=== PATIENT | female | born 1950 | race Caucasian/White ===

== ENCOUNTER 2016-06-14 10:56 | Inpatient (IN) | payer BC ==
[2016-06-14 11:14] LABS: Glucose,Whole Blood 94 mg/dL (75-99)
[2016-06-14] MEDS ORDERED: SODIUM CHLORIDE 0.9% 500 ML IV STA (11:19)
--- NOTE | 2016-06-14 11:22 | ED ---
General Adult HPI - General Chief complaint: Neuro Symptoms/Deficit Stated complaint: POSS CVA Time Seen by Provider: 06/14/16 11:00 Source: patient, RN notes reviewed Mode of arrival: wheelchair Limitations: no limitations - History of Present Illness Initial comments: This is a 65-year-old female presents to the emergency department complaining of facial droop. Patient states it started about an hour and half prior to arrival. Patient states the last few days she's had a headache and figured it was just some sort of viral bug. Patient denies any fever or chills. Patient denies any visual disturbances patient's symptoms. Patient denies any numbness or weakness. Patient denies any chest pain difficulty breathing or shortness of breath. Patient states she does have a tingling sensation the right side of her tongue as well. Patient states she feels like she just went to the dentist. Patient denies any recent fever or cough. Patient denies any abdominal pain patient denies nausea vomiting diarrhea. Patient denies being lightheaded dizzy or having a near syncopal episode. Patient states she has a headache but is only mild. - Related Data Home Medications Medication Instructions Recorded Confirmed ALPRAZolam [Xanax] 0.25 mg PO DAILY PRN 06/14/16 06/14/16 Losartan Potassium 100 mg PO DAILY 06/14/16 06/14/16 amLODIPine [Norvasc] 5 mg PO DAILY 06/14/16 06/14/16 Allergies Allergy/AdvReac Type Severity Reaction Status Date / Time hydromorphone [From Dilaudid] Allergy Unknown Verified 06/14/16 11:17 tramadol AdvReac Dyspnea Verified 06/14/16 11:17 Review of Systems ROS Statement: Those systems with pertinent positive or pertinent negative responses have been documented in the HPI. ROS Other: All systems not noted in ROS Statement are negative. Past Medical History Past Medical History: Hypertension History of Any Multi-Drug Resistant Organisms: C-DIFF Past Surgical History: Joint Replacement Past Psychological History: Anxiety Smoking Status: Never smoker Past Alcohol Use History: Occasional Past Drug Use History: None Reported General Exam - General Exam Comments Initial Comments: GENERAL: Patient is well-developed and well-nourished. Patient is nontoxic and well- hydrated and is in no acute distress. ENT: Neck is soft and supple. No significant lymphadenopathy is noted. Oropharynx is clear. Moist mucous membranes. Neck has full range of motion without eliciting any pain. EYES: The sclera were anicteric and conjunctiva were pink and moist. Extraocular movements were intact and pupils were equal round and reactive to light. Eyelids were unremarkable. PULMONARY: Unlabored respirations. Good breath sounds bilaterally. No audible rales rhonchi or wheezing was noted. CARDIOVASCULAR: There is a regular rate and rhythm without any murmurs gallops or rubs. ABDOMEN: Soft and nontender with normal bowel sounds. No palpable organomegaly was noted. There is no palpable pulsatile mass. SKIN: Skin is clear with no lesions or rashes and otherwise unremarkable. NEUROLOGIC: Patient is alert and oriented x3. Patient has facial droop on the right side. Patient's forehead is intact bilaterally however when the patient closes her eyes I am able to open the right eyelid open fully without much resistance were secondary to that on the left. Motor and sensory are also intact. Normal speech, volume and content. Symmetrical smile. MUSCULOSKELETAL: Normal extremities with adequate strength and full range of motion. No lower extremity swelling or edema. No calf tenderness. LYMPHATICS: No significant lymphadenopathy is noted PSYCHIATRIC: Normal psychiatric evaluation. Normal interpersonal interactions appears functionally intact in deals appropriately with others. No signs of depression. No signs of anxiety. Limitations: no limitations Course Vital Signs 06/14/16 06/14/16 10:58 12:05 Temperature 97.8 F Pulse Rate 76 63 Respiratory 18 18 Rate Blood Pressure 194/85 166/93 O2 Sat by Pulse 99 98 Oximetry Medical Decision Making - Medical Decision Making EKG shows normal sinus rhythm at 75 bpm NE interval is 134 QRS is 90 QT interval 396 QTC is 442. Patient's EKG shows no ST segment elevation or depression or T-wave abdomen is noted. Chest x-ray shows no acute abnormality. CT of the brain shows a mallet. Dr. Drummond interviewed the patient and agreed that he thought it was bells palsy but wanted to be sure the patient was admitted arise will be ordered and the patient was given Lipitor they are. - Lab Data Result diagrams: 06/14/16 11:43 06/14/16 11:43 Lab Results 06/14/16 06/14/16 06/14/16 Range/Units 11:13 11:43 11:43 WBC 5.6 (3.8-10.6) k/uL RBC 4.66 (3.80-5.40) m/uL Hgb 13.9 (11.4-16.0) gm/dL Hct 42.4 (34.0-46.0) % MCV 91.0 (80.0-100.0) fL MCH 30.0 (25.0-35.0) pg MCHC 32.9 (31.0-37.0) g/dL RDW 13.7 (11.5-15.5) % Plt Count 271 (150-450) k/uL Neutrophils % 64 % Lymphocytes % 25 % Monocytes % 5 % Eosinophils % 4 % Basophils % 1 % Neutrophils # 3.6 (1.3-7.7) k/uL Lymphocytes # 1.4 (1.0-4.8) k/uL Monocytes # 0.3 (0-1.0) k/uL Eosinophils # 0.2 (0-0.7) k/uL Basophils # 0.1 (0-0.2) k/uL PT (9.0-12.0) sec INR (<1.1) APTT (22.0-30.0) sec Sodium (137-145) mmol/L Potassium (3.5-5.1) mmol/L Chloride (98-107) mmol/L Carbon Dioxide (22-30) mmol/L Anion Gap mmol/L BUN (7-17) mg/dL Creatinine (0.52-1.04) mg/dL Est GFR (MDRD) Af Amer (>60 ml/min/1.73 sqM) Est GFR (MDRD) Non-Af (>60 ml/min/1.73 sqM) Glucose (74-99) mg/dL POC Glucose (mg/dL) 94 (75-99) mg/dL POC Glu Tire Bagger ID Branch, Haseeb Calcium (8.4-10.2) mg/dL Total Bilirubin (0.2-1.3) mg/dL AST (14-36) U/L ALT (9-52) U/L Alkaline Phosphatase (38-126) U/L Total Creatine Kinase 68 (30-135) U/L CK-MB (CK-2) 0.8 (0.0-2.4) ng/mL CK-MB (CK-2) Rel Index 1.2 Troponin I <0.012 (0.000-0.034) ng/mL Total Protein (6.3-8.2) g/dL Albumin (3.5-5.0) g/dL 06/14/16 06/14/16 Range/Units 11:43 11:43 WBC (3.8-10.6) k/uL RBC (3.80-5.40) m/uL Hgb (11.4-16.0) gm/dL Hct (34.0-46.0) % MCV (80.0-100.0) fL MCH (25.0-35.0) pg MCHC (31.0-37.0) g/dL RDW (11.5-15.5) % Plt Count (150-450) k/uL Neutrophils % % Lymphocytes % % Monocytes % % Eosinophils % % Basophils % % Neutrophils # (1.3-7.7) k/uL Lymphocytes # (1.0-4.8) k/uL Monocytes # (0-1.0) k/uL Eosinophils # (0-0.7) k/uL Basophils # (0-0.2) k/uL PT 10.6 (9.0-12.0) sec INR 1.1 (<1.1) APTT 23.1 (22.0-30.0) sec Sodium 144 (137-145) mmol/L Potassium 4.5 (3.5-5.1) mmol/L Chloride 107 (98-107) mmol/L Carbon Dioxide 25 (22-30) mmol/L Anion Gap 12 mmol/L BUN 21 H (7-17) mg/dL Creatinine 0.64 (0.52-1.04) mg/dL Est GFR (MDRD) Af Amer >60 (>60 ml/min/1.73 sqM) Est GFR (MDRD) Non-Af >60 (>60 ml/min/1.73 sqM) Glucose 92 (74-99) mg/dL POC Glucose (mg/dL) (75-99) mg/dL POC Glu Tire Bagger ID Calcium 9.5 (8.4-10.2) mg/dL Total Bilirubin 0.5 (0.2-1.3) mg/dL AST 30 (14-36) U/L ALT 35 (9-52) U/L Alkaline Phosphatase 102 (38-126) U/L Total Creatine Kinase (30-135) U/L CK-MB (CK-2) (0.0-2.4) ng/mL CK-MB (CK-2) Rel Index Troponin I (0.000-0.034) ng/mL Total Protein 7.1 (6.3-8.2) g/dL Albumin 4.2 (3.5-5.0) g/dL Disposition Clinical Impression: Cerebrovascular accident, Walden's palsy Disposition: ADMITTED IP TO THIS [facility] Time of Disposition: 13:20
--- NOTE | 2016-06-14 12:05 | CT ---
EXAMINATION TYPE: CT brain wo con DATE OF EXAM: 06/14/2016 11:55 AM COMPARISON: NONE INDICATION: Rt facial droop for 2 days DLP: 979.9 mGycm, Automated exposure control for dose reduction was used. CONTRAST: None CT of the brain is performed utilizing 3 mm thick sections through the posterior fossa and 3 mm thick sections through the remaining calvarium. Study is performed within 24 hours of arrival to the hosp ital. No abnormal hyperdensity is present to suggest an acute intracranial hemorrhage. No mass lesion is evident. No acute infarcts are evident. Ventricles and sulci are appropriate for the patient age. Paranasal sinuses and mastoid air cells within the [id number] are clear. IMPRESSIONS: 1. Normal CT Brain
[2016-06-14] MEDS ORDERED: ATORVASTATIN 80 MG TAB PO STA (12:08)
[2016-06-14 12:11] LABS: Basophils # (A) 0.1 k/uL (0-0.2); Basophils % (A) 1 %; CH 31.3; CHCM 34.5; Eosinophils # (A) 0.2 k/uL (0-0.7); Eosinophils % (A) 4 %; HCT 42.4 % (34.0-46.0); HGB 13.9 gm/dL (11.4-16.0); Luc # (Auto) 0.06; Luc % (Auto) 1; Lymphocytes # (A) 1.4 k/uL (1.0-4.8); Lymphocytes % (A) 25 %; MCHC 32.9 g/dL (31.0-37.0); Monocytes # (A) 0.3 k/uL (0-1.0); Monocytes % (A) 5 %; Neutrophils # (A) 3.6 k/uL (1.3-7.7); Neutrophils % (A) 64 %; RBC 4.66 m/uL (3.80-5.40); RDW 13.7 % (11.5-15.5); WBC 5.6 k/uL (3.8-10.6); WBC (Perox) 5.83
[2016-06-14 12:22] LABS: ALT 35 U/L (9-52); AST 30 U/L (14-36); Alkaline Phosphatase 102 U/L (38-126); Anion Gap 12 mmol/L; Blood Urea Nitrogen 21 mg/dL (7-17); Calcium 9.5 mg/dL (8.4-10.2); Carbon Dioxide 25 mmol/L (22-30); Chloride 107 mmol/L (98-107); Glucose 92 mg/dL (74-99); Non-African American GFR(MDRD) >60 (>60 ml/min/1.73 sqM); Potassium 4.5 mmol/L (3.5-5.1); Sodium 144 mmol/L (137-145); Total Bilirubin 0.5 mg/dL (0.2-1.3); Total Protein 7.1 g/dL (6.3-8.2)
[2016-06-14 12:26] LABS: INR 1.1 (<1.1); Partial Thromboplastin Time 23.1 sec (22.0-30.0); Prothrombin Time 10.6 sec (9.0-12.0)
[2016-06-14 12:34] LABS: Creatine Kinase 68 U/L (30-135)
[2016-06-14 12:47] LABS: Creatine Kinase MB 0.8 ng/mL (0.0-2.4); Troponin I <0.012 ng/mL (0.000-0.034)
--- NOTE | 2016-06-14 12:50 | XR ---
EXAMINATION TYPE: XR chest 2V DATE OF EXAM: 06/14/2016 12:32 PM COMPARISON: NONE HISTORY: Altered mental status TECHNIQUE: Frontal and lateral views of the chest are obtained. FINDINGS: There is no focal air space opacity, pleural effusion, or pneumothorax seen. The cardiac silhouette size is within normal limits. Prominent lung volume may be indicative of underlying COPD. The aorta is dense. There are overlying cardiac leads. The osseous structures are intact. IMPRESSION: No acute cardiopulmonary process.
[2016-06-14] MEDS ORDERED: ACETAMINOPHEN TAB 500 MG TAB PO STA (14:02)
[2016-06-14] MEDS: SODIUM CHLORIDE 0.9% 1,000 ML IV SCH (14:04)
--- NOTE | 2016-06-14 14:16 | US ---
EXAMINATION TYPE: US carotid duplex BILAT DATE OF EXAM: 06/14/2016 2:08 PM COMPARISON: NONE CLINICAL HISTORY: Drooping of right side of mouth, no h/o stroke. EXAM MEASUREMENTS: RIGHT: Peak Systolic Velocity (PSV) cm/sec ----- Right CCA: 71.2 ----- Right ICA: 76.5 ----- Right ECA: 78.2 ICA/CCA ratio: 1.1 RIGHT: End Diastole cm/sec ----- Right CCA: 23.2 ----- Right ICA: 22.3 ----- Right ECA: 15.4 LEFT: Peak Systolic Velocity (PSV) cm/sec ----- Left CCA: 77.3 ----- Left ICA: 101.4 ----- Left ECA: 68.4 ICA/CCA ratio: 1.3 LEFT: End Diastole cm/sec ----- Left CCA: 24.1 ----- Left ICA: 36.7 ----- Left ECA: 16.0 VERTEBRALS (direction of flow): Right Vertebral: Antegrade Left Vertebral: Antegrade Mild homogeneous plaque with no significant stenosis seen Grayscale, color Doppler, spectral Doppler imaging performed of the carotid arteries. IMPRESSION: No hemodynamic significant stenosis of the proximal internal carotid arteries bilaterall y by Doppler criteria, and indirect measurement of carotid stenosis Criteria for Assigning % of Stenosis / Diameter reduction (Estimation based on the indirect measurements of the internal carotid artery velocities (ICA PSV). 1. Normal (no stenosis)=ICA PSV < 125 cm/s: ratio < 2.0: ICA EDV<40 cm/s. 2. Less than 50% stenosis=ICA PSV < 125 cm/s: ratio < 2.0: ICA EDV<40 cm/s. 3. 50 to 69% stenosis=ICA PSV of 125 to 230 cm/s: ration 2.0 ? 4.0: ICA EDV 40-100 cm/s. 4. Greater than 70% stenosis to near occlusion= ICA PSV > 230 cm/s: ratio > 4.0: ICA EDV > 100 cm/s. 5. Near occlusion= ICA PSV velocities may be low or undetectable: variable ratio and ICA EDV. 6. Total occlusion=unable to detect flow.
[2016-06-14] MEDS ORDERED: ALPRAZolam 0.25 MG TAB PO PRN (15:04)
--- NOTE | 2016-06-14 17:15 | MR ---
MRI brain with and without contrast HISTORY: Facial droop right side, cerebrovascular accident Multiplanar multisequence and postcontrast images through the brain following 18 cc MultiHance IV. Ex am correlated to CT brain 14 June 2016 There is no restricted diffusion to suggest subacute ischemia. There is no hemorrhage or hydrocephalu s. Corpus callosum, pituitary, cervical medullary junction, cerebellopontine angles are normal. There are normal vascular flow voids. Normal vascular enhancement, there is no abnormal enhancement. Corti marika atrophy is likely age-related. The orbits show symmetric appearance. Inflammatory change present in the maxillary sinuses left greater than right, ethmoid air cells. Brain signal is maintained. IMPRESSION: Subacute ischemia is not evident. Sinus disease.
[2016-06-14] MEDS: ACETAMINOPHEN TAB 325 MG TAB PO PRN (19:04)
[2016-06-14] MEDS ORDERED: ARTIFICIAL TEARS-HYPROMELLOSE DROPS 15 ML BTL RIGHT EYE PRN (19:18)
--- NOTE | 2016-06-14 19:20 | P.CNNES ---
History of Present Illness Consult date: 06/14/16 History of Present Illness: The patient is a 65-year-old woman who states that she woke up this morning with right facial droop and droopiness of the right eye she thought she made of had a stroke so she came to the emergency room. She reports that for the last 3 dates she's been having a headache area for the last several weeks she had been having some cold sores on her lips. The patient denies any weakness in her limbs. She denies any visual loss. She has some tingling on the right cheek face and tongue area. Denies any ear pain. She denies any exposure to cold temperatures. She has been in her usual state of health except a headache for the last 3 days and some cold sores recently. Review of Systems Eyes: denies blurred vision, denies pain Ears, nose, mouth and throat: Denies headache, Denies sore throat Cardiovascular: Denies chest pain, Denies shortness of breath Respiratory: Denies cough Gastrointestinal: Denies abdominal pain, Denies diarrhea, Denies nausea, Denies vomiting Genitourinary: Denies dysuria, Denies hematuria Musculoskeletal: Denies myalgias Integumentary: Denies pruritus, Denies rash Neurological: Denies numbness, Denies weakness Psychiatric: Denies anxiety, Denies depression Endocrine: Denies fatigue, Denies weight change Past Medical History Past Medical History: GI Bleed, Hypertension, Osteoarthritis (OA), Skin Disorder Additional Past Medical History / Comment(s): lower GI bleed, ulcerative colitis , diverticulitis, rosacia, chest pain and palpitations sometimes with anxiety, hiatal hernia, hypoglycemia, generalize arthritis, bilateral carpal tunnel, sinus problems, seasonal allergies, UTI-one recently. History of Any Multi-Drug Resistant Organisms: C-DIFF Date of last positivie culture/infection: 07/2013 MDRO Source:: stool Past Surgical History: Joint Replacement, Tonsillectomy Additional Past Surgical History / Comment(s): Partial L knee arthroplasty, D&c x 2, colonoscopy. Past Anesthesia/Blood Transfusion Reactions: No Reported Reaction Past Psychological History: Anxiety Additional Psychological History / Comment(s): Pt lives with her spouse. She has a cane which she uses prn. She drives. Smoking Status: Former smoker Past Alcohol Use History: Daily Additional Past Alcohol Use History / Comment(s): Pt states she started smoking in 1970 and smoked on and off until 1982. Pt states she has not drank alcohol in 4-5 days but normally drinks about 3 beers a day. Past Drug Use History: None Reported - Past Family History Father Family Medical History: Coronary Artery Disease (CAD), Hypertension, Osteoarthritis (OA) Additional Family Medical History / Comment(s): Gout. Mother Family Medical History: Cancer, Coronary Artery Disease (CAD), Diabetes Mellitus , Hypertension, Liver Disease Additional Family Medical History / Comment(s): Mother is . She had [employer], cirrhosis, ampullary cancer. Medications and Allergies Home Medications Medication Instructions Recorded Confirmed Type ALPRAZolam [Xanax] 0.25 mg PO DAILY PRN 06/14/16 06/14/16 History Losartan Potassium 100 mg PO DAILY 06/14/16 06/14/16 History amLODIPine [Norvasc] 5 mg PO DAILY 06/14/16 06/14/16 History Allergies Allergy/AdvReac Type Severity Reaction Status Date / Time hydromorphone [From Dilaudid] Allergy Unknown Verified 06/14/16 11:17 tramadol AdvReac Dyspnea Verified 06/14/16 11:17 Physical Examination - Vital Signs Vital Signs: Vital Signs Temp Pulse Pulse Resp BP BP Pulse Ox 06/14/16 15:48 65 16 06/14/16 15:47 96.8 F L 65 16 164/87 99 06/14/16 14:30 97.6 F 78 16 163/91 99 06/14/16 14:21 97.9 F 06/14/16 13:23 60 18 128/73 96 Intake and Output 06/14/16 06/14/16 06/14/16 06:59 14:59 22:59 Intake Total 400 Balance 400 Intake: Intake, IV Titration 200 Amount Sodium Chloride 0.9% 1, 200 000 ml @ 100 mls/hr IV . Q10H [facility] Rx#:[id number] Oral 200 Other: Voiding Method Toilet Weight 92 kg Patient Weight 06/15/16 06:59 Weight 92 kg - Constitutional General appearance: average body habitus - EENT EENT: PERRL, hearing intact - Respiratory Respiratory: lungs clear - Cardiovascular Cardiovascular: regular rate, normal S1, normal S2 - Integumentary Integumentary: normal - Neurologic Is awake alert and oriented 3 speech is fluent there is no a aphasia or dysarthria Cranial nerve examination: PERRL, EOMI, facial droop, other (Right lower motor neuron seventh cranial nerve palsy) Speech examination: intact Detailed motor examination: grossly full strength in all extremities, full strength in all major muscle groups Motor examination - right side: 5/5: biceps, triceps, wrist flexion, wrist extension, gold layer, hip flexors, knee extensors, dorsiflexion, toe extension (EHL) , plantarflexion Motor examination - left side: 5/5: biceps, triceps, wrist flexion, wrist extension, gold layer, hip flexors, knee extensors, dorsiflexion, toe extension (EHL) , plantarflexion Detailed sensory examination: intact Reflexes: 2+: knee - Psychiatric Psychiatric: mood/affect appropriate Results - Laboratory Findings CBC and BMP: 06/14/16 11:43 06/14/16 11:43 Assessment and Plan (1) Right-sided Perez's palsy Status: Acute Code(s): G51.0 - PEREZ'S PALSY Plan: Patient is a 65-year-old woman with clinical signs of a right lower motor neuron facial paralysis i.e. Perez's palsy. Recommend antiviral agent Valtrex 1 g 3 times a day 7 days. The patient was offered steroids as well but she would rather not take steroids. Also recommend physical therapy for possible electrical's TENS unit stimulation for Perez's palsy and she will start facial exercises. Recommend artificial tears or eye lubricant every 4 hours to right eye and eye shield for nighttime.
[2016-06-14] MEDS: predniSONE 10 MG TAB PO SCH (19:48)
[2016-06-14] MEDS: valACYclovir HCL 1,000 MG TABLET PO SCH (19:56)
[2016-06-14] MEDS ORDERED: valACYclovir 500 MG TAB PO SCH (21:00)
[2016-06-15] MEDS: ACETAMINOPHEN TAB 325 MG TAB PO PRN ×2 (02:59→09:45)
[2016-06-15] MEDS: SODIUM CHLORIDE 0.9% 1,000 ML IV SCH ×2 (05:20→08:51)
[2016-06-15] MEDS: predniSONE 10 MG TAB PO SCH (08:50)
[2016-06-15] MEDS: valACYclovir HCL 1,000 MG TABLET PO SCH (08:50)
[2016-06-15] MEDS ORDERED: LOSARTAN 50 MG TAB PO SCH (09:00)
[2016-06-15] MEDS ORDERED: amLODIPine 5 MG TAB PO SCH (09:00)
[2016-06-15] MEDS ORDERED: ENOXAPARIN 40 MG/0.4 ML SYRINGE SQ SCH (10:00)
--- NOTE | 2016-06-15 11:14 | HP ---
DATE OF ADMISSION: 06/14/2016 PRESENTING COMPLAINT: Facial asymmetry. HISTORY OF PRESENTING COMPLAINT: This is a pleasant 65-year-old patient of Dr. Abraham. Chronic stable medical conditions include hypertension, osteoarthritis, ulcerative colitis, rosacea, hiatal hernia, anxiety. Around 10:00 yesterday morning, the patient suddenly noticed facial drooping, some blurring of the vision, headache and decided to come in ER. ( ) Neurology was consulted to rule out a central cause. Patient was admitted even though it was felt the patient may have Walden's palsy with further neurological evaluation. REVIEW OF SYSTEMS: CONSTITUTIONAL: None. HEENT: As above. RESPIRATORY: None. CARDIOVASCULAR: None. GASTROINTESTINAL: Heartburn. GENITOURINARY: None. MUSCULOSKELETAL: Muscle aches and pains in different joints. DERMATOLOGICAL: None. HEMATOLOGICAL: None. LYMPHATIC: None. PSYCHIATRY: As above. NEUROLOGICAL: As above. GASTROINTESTINAL: The patient occasionally gets diarrhea. Past medical history of hypertension, osteoarthritis, ulcerative colitis, rosacea, hiatal hernia, anxiety. PAST SURGICAL HISTORY: Joint replacement, tonsillectomy, partial knee arthroplasty. SOCIAL HISTORY: The patient , retired. Drinks a few beers occasionally. Family history of coronary artery disease, hypertension, osteoarthritis, gout. HOME MEDICATIONS: 1. Norvasc 5 mg daily. 2. Cosopt 100 mg p.o. daily. 3. Xanax 0.25 p.o. daily p.r.n. Allergies to DILAUDID and ULTRAM. On examination vital signs on presentation: Temperature 97.9, pulse 78, respirations 16, blood pressure 128/73, pulse ox 96% on 2 L. GENERAL APPEARANCE: Well built, BMI of 33.5, sitting up, not in distress. EYES: Pupils equal. Conjunctivae normal. HEENT: External appearance of nose and ears normal. Oral cavity normal. NECK: JVD not raised. Mass not palpable. RESPIRATORY: Effort normal. Lungs are clear. CARDIOVASCULAR: First and second sounds normal. No edema. ABDOMEN: Soft, nontender. Liver and spleen not palpable. LYMPHATIC: No lymph node palpable in neck or axillae. PSYCHIATRY: Alert and oriented x3. Mood and affect normal. NEUROLOGICAL: Pupils equal. Face is pulled to the left. Loss of wrinkle to the right forehead, unable to close the right eyelid fully. Otherwise power and sensation grossly intact. INVESTIGATIONS: White count 5.6, hemoglobin 13.9. Potassium 4.5. CT scan of the brain normal. Carotid Doppler no critical stenosis. MRI of the brain no obvious areas of stroke. ASSESSMENT: 1. Acute right sided Walden's palsy, lower motor neuron type. Patient was admitted to rule out a central cause and get neurological evaluation. 2. Obesity, body mass index of 33.5. 3. Essential hypertension. 4. Primary osteoarthritis, multiple joints, chronic. 5. Chronic ulcerative colitis, under control. 6. Rosacea, chronic. 7. Anxiety, not otherwise specified. PLAN: The patient will be started on Valtrex. Home medications are resumed. Lovenox for DVT prophylaxis. Physical therapy is consulted for exercise. Care was discussed with the patient in detail. Questions were answered.
[2016-06-15 11:19] VITALS: BP 143/93; PULSE 66; RESP 18; TEMP 96.5
--- NOTE | 2016-06-16 10:08 | DS ---
DATE OF ADMISSION: 06/14/2016 DATE OF DISCHARGE: 06/15/2016 FINAL DIAGNOSIS(ES): 1. Acute right-sided Walden's palsy, probably viral in nature. 2. Obesity, body mass index of 33.5. 3. Essential hypertension. 4. Primary osteoarthritis of multiple joints, chronic. 5. Chronic ulcerative colitis under control. 6. Chronic rosacea. 7. Anxiety not otherwise specified. CONSULTATION: Dr. Winters from neurology. HOSPITAL COURSE: This patient presented with Walden's palsy because of concern of central cause/rule out other conditions. Patient did undergo an MRI of the brain and carotid Doppler all unremarkable. The patient will be put on Valtrex. On examination, classical signs of Walden's palsy, present on the right side of the face. Care was discussed with the patient. Seen by physical therapy. ( ) was given. DISCHARGE MEDICATIONS: 1. Xanax 0.25 p.o. daily p.r.n. 2. Losartan 100 mg p.o. daily. 3. Norvasc 5 mg p.o. a day. 4. Artificial tears one drop to right eye q.i.d. p.r.n. 5. Prednisone 40 mg daily. 6. Valtrex 1000 mg p.o. t.i.d. for 21 days. 7. Prednisone 40 mg daily for 7 days. Follow up with Dr. Marcello Abraham on 06/19/2016. Walden's Palsy exercises to continue.
== END 2016-06-15 12:14 | disposition home or self-care (01) | DRG 74 ==
LOC: EC 10:56 → 6SEL 13:20
PROVIDERS: ADMIT Hospitalist; ATTEND Hospitalist
DX: G51.0 Bell's palsy (principal); K51.90 Ulcerative colitis, unspecified, without complications; I10 Essential (primary) hypertension; B97.89 Other viral agents as the cause of diseases classified elsewhere; H53.8 Other visual disturbances; R51 Headache; L71.9 Rosacea, unspecified; R12 Heartburn; R20.2 Paresthesia of skin; B00.1 Herpesviral vesicular dermatitis; J30.2 Other seasonal allergic rhinitis; K44.9 Diaphragmatic hernia without obstruction or gangrene; G56.03 Carpal tunnel syndrome, bilateral upper limbs; F41.9 Anxiety disorder, unspecified; M19.91 Primary osteoarthritis, unspecified site; Z88.5 Allergy status to narcotic agent; Z82.49 Family history of ischemic heart disease and other diseases of the circulatory system; Z83.3 Family history of diabetes mellitus; Z87.891 Personal history of nicotine dependence; Z79.899 Other long term (current) drug therapy; Z96.652 Presence of left artificial knee joint; Z87.440 Personal history of urinary (tract) infections; Z87.19 Personal history of other diseases of the digestive system; Z86.19 Personal history of other infectious and parasitic diseases; Z80.0 Family history of malignant neoplasm of digestive organs; Z83.79 Family history of other diseases of the digestive system
CPT/HCPCS: 36415; 70450; 70553; 71020; 80053; 82550; 82553; 84484; 85025; 85610; 85730; 93005; 93880; 96360; 99285

== ENCOUNTER → 2016-09-14 | Outpatient (CLI) | payer BC ==
--- NOTE | 2016-09-20 10:24 | MM ---
Reason for exam: screening (asymptomatic). Last mammogram was performed 1 year and 2 months ago. History: Patient is postmenopausal. Family history of breast cancer in maternal grandmother and breast cancer in maternal aunt. Physical Findings: A clinical breast exam by your physician is recommended on an annual basis and results should be correlated with mammographic findings. MG Screening Mammo w CAD Bilateral CC and MLO view(s) were taken. Prior study comparison: July 12, 2015, mammogram, performed at [facility]. November 11, 2012, mammogram, performed at [facility]. November 07, 2011, mammogram, performed at [facility]. The breast tissue is heterogeneously dense. This may lower the sensitivity of mammography. There is no discrete abnormality. ASSESSMENT: Negative, BI-RAD 1 RECOMMENDATION: Routine screening mammogram of both breasts in 1 year.
== END | disposition home or self-care (01) ==
LOC: RADMAMWWP 10:55
PROVIDERS: ATTEND Family Medicine
DX: Z12.31 Encounter for screening mammogram for malignant neoplasm of breast (principal)

== ENCOUNTER → 2017-06-07 | Outpatient (CLI) | payer BC ==
--- NOTE | 2017-06-08 08:28 | USB ---
Reason for exam: clinical finding. History: Patient is postmenopausal. Family history of breast cancer in maternal grandmother and breast cancer in maternal aunt. Physical Findings: Nurse did not find any significant physical abnormalities on exam. US Breast LT Left breast ultrasound includes all four quadrants, the retroareolar region and axilla. Finding demonstrates a 0.8 x 0.5 x 0.7cm mixed lesion at 5 o'clock and a 1.3 x 0.7 x 0.5cm mixed lesion at 10 o'clock. These could represent islands of dense tissue or fat necrosis. These results were verbally communicated with the patient and result sheet given to the patient on 06/07/17. ASSESSMENT: Benign, BI-RAD 2 RECOMMENDATION: Return to routine screening mammogram schedule for both breasts. Back on schedule.
== END ==
LOC: RADUSWWP 15:35
PROVIDERS: ATTEND Family Medicine
DX: N64.4 Mastodynia (principal)

== ENCOUNTER → 2017-10-03 | Outpatient (CLI) | payer BC, MEDICARE ==
--- NOTE | 2017-10-05 08:02 | MM ---
Reason for exam: screening (asymptomatic). Last mammogram was performed 1 year and 1 month ago. History: Patient is postmenopausal. Family history of breast cancer in maternal grandmother and breast cancer in maternal aunt. Physical Findings: A clinical breast exam by your physician is recommended on an annual basis and results should be correlated with mammographic findings. MG Screening Mammo w CAD Bilateral CC and MLO view(s) were taken. Prior study comparison: September 14, 2016, bilateral MG screening mammo w CAD. July 12, 2015, mammogram, performed at [facility]. The breast tissue is heterogeneously dense. This may lower the sensitivity of mammography. No suspicious abnormality. No significant changes when compared with prior studies. ASSESSMENT: Negative, BI-RAD 1 RECOMMENDATION: Routine screening mammogram of both breasts in 1 year.
== END | disposition home or self-care (01) ==
LOC: RADMAMWWP 12:45
PROVIDERS: ATTEND Family Medicine
DX: Z12.31 Encounter for screening mammogram for malignant neoplasm of breast (principal)
CPT/HCPCS: 77067

== ENCOUNTER → 2020-08-19 | Outpatient (CLI) | payer MEDICARE ==
[~2020-08-19] MED LIST: REGADENOSON 0.4 MG/5 ML SYRINGE IV PRN
--- NOTE | 2020-08-19 16:06 | NM ---
EXAMINATION TYPE: NM stress lexiscan cardiolite DATE OF EXAM: 08/19/2020 COMPARISON: NONE HISTORY: Abnormal EKG TECHNIQUE: After the intravenous administration of 9.5 mCi Tc 99m Sestamibi - Cardiolite resting SPE CT images acquired 45 minutes post injection. At peak stress 24.1 mCi Tc 99m Sestamibi - Stress images obtained 40 minutes post injection The patient was stressed with 0.4mg Lexiscan. FINDINGS: No fixed defects are evident No reversible stress defects on Spect images There is dyskinesia of the distal anterior wall. Ejection fraction is calculated to be 69 %. IMPRESSION: 1. No stress-induced ischemic changes. 2. Some dyskinesia of the distal anterior wall.
--- NOTE | 2020-08-19 17:55 | P.STRESS ---
- Stress Test Note Stress Test Results/Findings: Exam Performed: NM stress lexiscan cardiolite Exam Date: 08/19/20 Reason for Exam: Shortness of Breath Height: 5 ft 4 in Weight: 92.986 kg Protocol: Lexiscan Stage: na Duration of Exercise: na Resting Heart Rate: 63 Resting Blood Pressure: 146/83 Maximum Achieved Heart Rate: 90 Maximum Achieved Blood Pressure: 146/83 85% PMHR: 129 100% PMHR: 152 METS: na Technologist Comment: Stress Test Results/Findings: At baseline EKG showed normal sinus rhythm, normal axis, incomplete right bundle branch block, no significant ST or T-wave abnormalities. Patient recieved IV infusion of Lexiscan 0.4mg and at peak infusion EKG showed no significant changes from baseline. Conclusions: 1. Normal EKG response to Lexiscan infusion 2. Nuclear imaging to be reported separately.
== END ==
LOC: RADNMMAIN 08:08
PROVIDERS: ATTEND Family Medicine
DX: I51.5 Myocardial degeneration (principal)
CPT/HCPCS: 93017; 78452; A9500; J2785